=== PATIENT | female | born 1990 | race Caucasian/White ===

== ENCOUNTER 2023-01-16 14:02 | Emergency (ER) | payer SELFPAY ==
[2023-01-16] MEDS ORDERED: Fluorescein Opthalmic Strip ONE (14:24)
[2023-01-16] MEDS ORDERED: Proparacaine 0.5% Opth 15 ML BOT ONE (14:25)
== END 2023-01-16 15:22 | disposition home or self-care (01) ==
LOC: ERS 14:02
DX: S05.02XA Injury of conjunctiva and corneal abrasion without foreign body, left eye, initial encounter (principal); H10.33 Unspecified acute conjunctivitis, bilateral; X58.XXXA Exposure to other specified factors, initial encounter
CPT/HCPCS: 99283